=== PATIENT | female | born 1965 | race Asian ===

== ENCOUNTER 2016-09-09 16:56 | Inpatient (IN) | payer OTHER ==
[~2016-09-09] VITALS: Ht 157.5 cm; Wt 36.8 kg
[~2016-09-09 16:56] MED LIST: ACET325T33 PO; ATOR40TA68 PO; DOCU-144 PO; GLIM2TAB PO; HYDR-3498 NGT; HYDR-3720 PO; IBUP400T22 PO; METF1000 PO; METH500T PO
[2016-09-09] MEDS ORDERED: SOD CHLORIDE 0.9% 1,000 ML IV STA (17:15)
[2016-09-09] MEDS ORDERED: HYDROmorphONE 1 MG/ML SYG IV STA ×2 (17:43→18:04)
[2016-09-09 17:51] LABS: ADD UMIC NO; URINE BILIRUBIN (Dip) NEGATIVE (NEGATIVE); URINE BLOOD (Dip) NEGATIVE (NEGATIVE); URINE COLOR LT. YELLOW (YELLOW); URINE GLUCOSE (Dip) NEGATIVE (NEGATIVE); URINE KETONES (Dip) NEGATIVE (NEGATIVE); URINE LEUKOCYTE ESTERASE (Dip) NEGATIVE (NEGATIVE); URINE NITRITE (Dip) NEGATIVE (NEGATIVE); URINE TOTAL PROTEIN (Dip) NEGATIVE (NEGATIVE); URINE UROBILINOGEN (Dip) 0.2 E.U./dL (0.1-1.0)
[2016-09-09 17:53] LABS: HEMATOCRIT 31.8 % (37.0-47.0); HEMOGLOBIN 10.6 g/dl (12.0-16.0); MEAN CORPUSCULAR HEMOGLOBIN 25.8 pg (29.0-33.0); MEAN CORPUSCULAR HGB CONC 33.2 g/dl (32.0-37.0); MEAN CORPUSCULAR VOLUME 77.8 fl (82.0-101.0); MEAN PLATELET VOLUME 5.8 fl (7.4-10.4); PLATELET COUNT 694 10^3/UL (140-440); RED BLOOD COUNT 4.09 10^6/ul (4.20-5.40); RED CELL DISTRIBUTION WIDTH 17.9 % (11.5-14.5); UNCORRECTED WBC 18.1 10^3/ul (4.8-10.8); WHITE BLOOD COUNT 18.1 10^3/ul (4.8-10.8)
[2016-09-09 17:56] LABS: ALBUMIN 3.2 g/dl (3.3-4.9)
[2016-09-09 17:58] LABS: CREATININE 0.49 mg/dl (0.44-1.00)
[2016-09-09 17:59] LABS: ALBUMIN/GLOBULIN RATIO 0.65; BILIRUBIN,INDIRECT 0.2 mg/dl (0-1.1); BILIRUBIN,TOTAL 0.2 mg/dl (0.2-1.3); CALCIUM 9.3 mg/dl (8.4-10.2); TOTAL PROTEIN 8.1 g/dl (6.1-8.1)
[2016-09-09 18:10] LABS: CONDITION 1
--- NOTE | 2016-09-09 18:14 | ERA ---
ER Documentation Chief Complaint Date/Time DATE: 09/09/16 TIME: 18:09 Chief Complaint urine retention distended bladder since 7 am this morning HPI 51-year-old woman brought in by EMS from home for suprapubic abdominal pain. She has metastatic colon cancer and had a colon stent placed months ago, which family members were at the bedside state came out with a bowel movement 3 days ago. Despite opioid analgesic use she has continued abdominal pain and recent suprapubic distention she has had no fevers or chills, no vomiting despite p.o. intake, no blood per rectum or melena, no chest pain or shortness of breath. ROS All systems reviewed and are negative except as per history of present illness. Medications Home Meds Active Scripts Hydrocodone Bit-Acetaminophen* ([place]*) 7.5-325 Tablet, 1 TAB PO Q4H Y for PAIN , #30 TAB Prov:TEJINDER DAVIDSTOLOS A. DO 12/06/15 Ibuprofen* (Motrin*) 400 Mg Tab, 400 MG PO Q6H Y for PAIN, #30 TAB Prov:TEJINDER DAVIDSTOLOS A. DO 12/06/15 Methocarbamol* (Robaxin*) 500 Mg Tab, 500 MG PO Q8, #30 TAB Prov:TEJINDER DAVIDSTOLOS A. DO 12/06/15 Hydrocodone Bit/Acetaminophen (Anexsia 5-325 Mg Tablet) 1 Tab Tab, 1 TAB NGT Q4H Y for Moderate pain for 28 Days, TAB Prov:FER DE OLIVEIRA MD 10/29/15 Docusate Sodium* (Colace*) 100 Mg Cap, 100 MG PO Q12H Y for CONSTIPATION for 28 Days, CAP Prov:FER DE OLIVEIRA MD 10/29/15 Acetaminophen* (Tylenol*) 325 Mg Tab, 650 MG PO Q6H Y for PAIN LEVEL 1-3 OR FEVER for 28 Days, TAB Prov:FER DE OLIVEIRA MD 10/29/15 Reported Medications Metformin Hcl* (Metformin Hcl*) 1,000 Mg Tablet, 1000 MG PO BID 09/25/15 Atorvastatin* (Atorvastatin*) 40 Mg Tablet, 40 MG PO DAILY 09/25/15 Glimepiride* (Glimepiride*) 2 Mg Tablet, 2 MG PO BID 09/25/15 Allergies Allergies: Coded Allergies: No Known Allergy (Verified , 06/13/08) PMhx/Soc Hypertension, colon cancer History of Surgery: Yes (colon stent placement/removal) Anesthesia Reaction: No Hx Neurological Disorder: No Hx Respiratory Disorders: No Hx Cardiac Disorders: No Hx Psychiatric Problems: No Hx Miscellaneous Medical Probl: Yes (COLON CANCER, DM) Hx Alcohol Use: No Hx Substance Use: No Hx Tobacco Use: No Smoking Status: Never smoker FmHx Family History: No diabetes Physical Exam Vitals Vital Signs Date Time Temp Pulse Resp B/P Pulse Ox O2 Delivery O2 Flow Rate FiO2 09/09/16 17:01 97.8 119 18 146/109 99 Physical Exam GENERAL: Well-developed, dehydrated, emaciated, in pain HEENT: Dry mucous membranes, pink conjunctiva, no cervical spine tenderness or step-off deformities, no goiter, no jaundice or icterus, extraocular movements intact without pain. No submandibular induration, and no pharyngeal erythema NEURO: Alert and oriented 3, cranial nerves II through XII intact bilaterally, pupils equal round reactive to light, no focal deficits or facial asymmetry, sensation intact distally Strength 5/5 in upper and lower extremities bilaterally CARDIAC: Tachycardic and regular, no murmurs rubs or gallops LUNGS: Clear bilaterally no wheezing crackles or stridor ABDOMEN: positive suprapubic distention no psoas sign no obturator sign. Normoactive bowel sounds SKIN: Warm and dry to touch, no abrasions, contusions, or hematomas, no lacerations, no ecchymosis, no target lesions, and without ulcers EXTREMITIES: No clubbing cyanosis or edema, calves are bilaterally symmetrical, no Homans sign, no popliteal cord sign. Distal pulses equal and bilateral PSYCH: Normal affect without agitation or irritability Result Diagram: 09/09/16 1730 Results 24 hrs Laboratory Tests Test 09/09/16 17:20 09/09/16 17:30 Urine Bilirubin NEGATIVE Urine Clarity CLEAR Urine Color LT. YELLOW Urine Glucose NEGATIVE% Urine Hemoglobin NEGATIVE Urine Ketones NEGATIVE Urine Leukocyte Esterase NEGATIVE Urine Nitrite NEGATIVE Urine Specific Allison 1.010 Urine Total Protein NEGATIVE Urine Urobilinogen 0.2 E.U./dL Urine pH 7.0 Alanine Aminotransferase (ALT/SGPT) 14IU/L Albumin 3.2g/dl Albumin/Globulin Ratio 0.65 Alkaline Phosphatase 166IU/L Anion Gap 15 Aspartate Amino Transf (AST/SGOT) 66IU/L Blood Urea Nitrogen 17mg/dl Calcium Level 9.3mg/dl Carbon Dioxide Level 29mmol/L Chloride Level 96mmol/L Creatinine 0.49mg/dl Direct Bilirubin 0.00mg/dl Globulin 4.90g/dl Glucose Level 165mg/dl Indirect Bilirubin 0.2mg/dl Lipase 20U/L Potassium Level 4.0mmol/L Sodium Level 136mmol/L Total Bilirubin 0.2mg/dl Total Protein 8.1g/dl Current Medications Medications (Trade) Dose Ordered Sig/Quin Route PRN Reason Start Time Stop Time Status Last Admin Dose Admin Sodium Chloride (NS) 1,000 ml @ 2,000 mls/hr Q30M STAT IV 09/09/16 17:15 09/09/16 17:44 DC 09/09/16 17:34 Hydromorphone HCl (Dilaudid) 1 mg ONCE STAT IV 09/09/16 17:43 09/09/16 17:44 DC 09/09/16 17:48 Hydromorphone HCl (Dilaudid) 1 mg ONCE STAT IV 09/09/16 18:04 09/09/16 18:06 DC Procedures/MDM IV line was established patient was placed on surveillance monitor rhythm strip revealed a sinus tachycardia at 110 bpm with upright P and T waves. Patient was afebrile. For suprapubic distention and urinary retention a Davis catheter was placed with about 2 L of urine output. Urine cultures have been ordered results are pending I will follow-up. CBC revealed leukocytosis, electrolytes were unremarkable, liver function tests were normal, urine analysis was clean. For dehydration I administered 2 L normal saline intravenously for pain she received hydromorphone 1 mg IV later followed by another dose for continued pain. Departure Diagnosis: Primary Impression: Metastatic colon cancer in female Additional Impressions: Intractable pain Urinary retention Hypertension Qualified Code: I10 - Essential hypertension Condition: CASSANDRA Prieto MD Sep 09, 2016 18:14
[2016-09-09] MEDS ORDERED: HYDR-3498 PO (18:18)
[2016-09-09] MEDS ORDERED: DOCU100C26 PO (18:20)
[2016-09-09] MEDS ORDERED: MORP-58 PO (18:20)
[2016-09-09] MEDS ORDERED: HYDR4TAB PO (18:21)
[2016-09-09] MEDS ORDERED: GABA100C14 PO (18:22)
[2016-09-09 18:39] LABS: BASOPHIL # 0.2 10^3/ul (0.0-0.1); LYMPHOCYTES # 0.5 10^3/ul (0.8-2.9); MONOCYTE # 0.5 10^3/ul (0.3-0.9); NEUTROPHIL # 16.1 10^3/ul (1.6-7.5)
[2016-09-09 18:41] LABS: PLATELET ESTIMATE PLT APPEAR INCREASED
[2016-09-09] MEDS ORDERED: [UNRECOGNIZED DRUG - OTHER] SL (18:53)
[2016-09-09 21:00] VITALS: PULSE 109; TEMP 98
[2016-09-09] MEDS: morphine 4 MG/ML VIAL IV PRN (21:11)
[2016-09-09] MEDS ORDERED: HYDR-902 PO (23:16)
[2016-09-09 23:27] VITALS: BP 143/67; RESP 16
[2016-09-09] MEDS ORDERED: DEXTROSE 50% 50 ML SYRINGE IV PRN ×2 (23:45)
[2016-09-09] MEDS ORDERED: GLUCOSE GEL 15 GRAM TUBE PO PRN ×2 (23:45)
[2016-09-09] MEDS ORDERED: GLUCOSE GEL 15 GRAM TUBE BUCCAL PRN (23:45)
[2016-09-09] MEDS ORDERED: GLUCAGON 1 MG INJ IM PRN (23:45)
[2016-09-10] MEDS ORDERED: MORPHINE SL PRN
[2016-09-10] MEDS: ACETAMINOPHEN 325 MG TAB PO PRN (00:24)
[2016-09-10] MEDS: morphine 4 MG/ML VIAL IV PRN ×4 (01:28→21:46)
[2016-09-10] MEDS: ACCUCHECK XX SCH (02:00)
[2016-09-10 05:43] LABS: EOSINOPHILS # 0.1 10^3/ul (0.0-0.5); EOSINOPHILS % 0.9 % (0.0-7.0); HEMATOCRIT 24.9 % (37.0-47.0); HEMOGLOBIN 8.3 g/dl (12.0-16.0); LYMPHOCYTES # 1.3 10^3/ul (0.8-2.9); LYMPHOCYTES % 13.1 % (15.0-51.0); MEAN CORPUSCULAR HGB CONC 33.2 g/dl (32.0-37.0); MEAN CORPUSCULAR VOLUME 78.1 fl (82.0-101.0); MEAN PLATELET VOLUME 5.9 fl (7.4-10.4); MONOCYTE # 0.4 10^3/ul (0.3-0.9); MONOCYTES % 4.6 % (0.0-11.0); NEUTROPHIL # 7.9 10^3/ul (1.6-7.5); NEUTROPHILS % 81.4 % (39.0-77.0); PLATELET COUNT 607 10^3/UL (140-440); RED BLOOD COUNT 3.18 10^6/ul (4.20-5.40); RED CELL DISTRIBUTION WIDTH 18.4 % (11.5-14.5); UNCORRECTED WBC 9.7 10^3/ul (4.8-10.8); WHITE BLOOD COUNT 9.7 10^3/ul (4.8-10.8)
[2016-09-10 05:46] LABS: CONDITION 1; LH ANALYZER COMMENTS 1
[2016-09-10] MEDS: PANTOPRAZOLE 40 MG INJ IV SCH (06:27)
[2016-09-10 06:31] LABS: ALBUMIN 2.4 g/dl (3.3-4.9)
[2016-09-10 06:32] LABS: POTASSIUM 3.2 mmol/L (3.5-5.1)
[2016-09-10 06:34] LABS: BILIRUBIN,INDIRECT 0.1 mg/dl (0-1.1); BILIRUBIN,TOTAL 0.1 mg/dl (0.2-1.3); CREATININE 0.43 mg/dl (0.44-1.00)
[2016-09-10 06:35] LABS: ALBUMIN/GLOBULIN RATIO 0.63; CALCIUM 8.6 mg/dl (8.4-10.2); TOTAL PROTEIN 6.2 g/dl (6.1-8.1)
[2016-09-10] MEDS: INSULIN ASPART [NOVOLOG] 3 ML PEN SC SCH ×4 (07:57→21:00)
[2016-09-10 08:05] VITALS: BP 134/74; RESP 20
[2016-09-10] MEDS ORDERED: POTASSIUM CHLORIDE 250 ML IVPB ONE (08:30)
[2016-09-10] MEDS ORDERED: GLIMEPIRIDE 2 MG TAB PO SCH (09:00)
[2016-09-10] MEDS: MINERAL OIL 30ML CUP PO SCH (09:37)
[2016-09-10] MEDS: DOCUSATE SODIUM 100 MG CAP PO SCH ×2 (09:37→21:50)
[2016-09-10] MEDS: morphine (ER) 30 MG TAB PO SCH ×2 (09:38→23:09)
--- NOTE | 2016-09-10 09:50 | QN ---
Documentation Comment [id number] FER DE OLIVEIRA MD Sep 10, 2016 09:50
--- NOTE | 2016-09-10 11:07 | RADRPT ---
PROCEDURE: US Retroperitoneum. CLINICAL INDICATION: Abnormal labs. TECHNIQUE: Sonographic evaluation of the kidneys and bladder was performed using a curved array tr ansducer. COMPARISON: None. FINDINGS: Right kidney Size: 9.9 cm. Echogencitiy: Normal. Parenchymal thickness: Normal. Pelvicalyceal dilation: None. Focal findings: None. Left kidney Size: 10.0 cm. Echogencitiy: Normal. Parenchymal thickness: Normal. Pelvicalyceal dilation: None. Focal findings: None. Bladder A Davis catheter is present in the decompressed urinary bladder. Other findings None. IMPRESSION: 1. Unremarkable sonographic evaluation of the kidneys. RPTAT: EE .Van Richardson MD, MD Date Time Electronically viewed and signed by .Van Richardson MD, on 09/10/2016 11:11 .C/
[2016-09-10] MEDS ORDERED: POLYETHYLENE GLYCOL 17 GM PACKET PO PRN (12:00)
[2016-09-10] MEDS ORDERED: NA PHOSPHATE/BIPHOS 133 ML ENEMA PR PRN (12:00)
[2016-09-10 19:45] VITALS: BP 122/60; RESP 16
[2016-09-10] MEDS ORDERED: ATORVASTATIN 40 MG TAB PO SCH (21:00)
[2016-09-10] MEDS ORDERED: GABAPENTIN 100 MG CAP PO SCH (21:00)
[2016-09-10] MEDS: LUBIPROSTONE 24 MCG CAP PO SCH (21:50)
[2016-09-11] MEDS: ACCUCHECK XX SCH (01:19)
[2016-09-11] MEDS: morphine 4 MG/ML VIAL IV PRN ×2 (01:44→18:28)
[2016-09-11] MEDS ORDERED: ONDANSETRON 4 MG INJ IV PRN (02:30)
[2016-09-11] MEDS: PANTOPRAZOLE 40 MG INJ IV SCH (06:04)
[2016-09-11 06:05] VITALS: Ht 157.5 cm; Wt 36.8 kg
[2016-09-11 06:38] LABS: POTASSIUM 3.4 mmol/L (3.5-5.1)
[2016-09-11 06:41] LABS: CALCIUM 8.5 mg/dl (8.4-10.2); CREATININE 0.39 mg/dl (0.44-1.00)
[2016-09-11 07:50] VITALS: BP 113/64; RESP 16
[2016-09-11] MEDS: INSULIN ASPART [NOVOLOG] 3 ML PEN SC SCH ×3 (08:15→17:37)
[2016-09-11] MEDS: morphine (ER) 30 MG TAB PO SCH (08:29)
[2016-09-11] MEDS: LUBIPROSTONE 24 MCG CAP PO SCH (08:29)
[2016-09-11] MEDS: DOCUSATE SODIUM 100 MG CAP PO SCH (08:29)
[2016-09-11] MEDS: MINERAL OIL 30ML CUP PO SCH (08:29)
[2016-09-11] MEDS ORDERED: INFLUENZA VIRUS VACCINE 0.5 ML (DISPENSING) IM* ONE (09:00)
--- NOTE | 2016-09-11 12:41 | PDOCDIS ---
Discharge Instructions CONDITION Patient Condition: Stable HOME CARE INSTRUCTIONS: Special Diet: 1800 ada FOLLOW UP/APPOINTMENTS Appointments f/u own pcp 1 wk and hospice f/u out pt FER DE OLIVEIRA MD Sep 11, 2016 12:41
[2016-09-11] MEDS ORDERED: POLY17PO6 PO (12:42)
[2016-09-11] MEDS ORDERED: LUBI24CA7 PO (12:42)
--- NOTE | 2016-09-11 12:49 | PN ---
Date/Time of Note Date/Time of Note DATE: 09/11/16 TIME: 12:47 Assessment/Plan VTE Prophylaxis VTE Prophylaxis Intervention: other Lines/Catheters IV Catheter Type (from Nrs): Saline Lock Urinary Cath still in place: Yes Reason Cath still needed: other (indicate) Assessment/Plan Chief Complaint/Hosp Course meatastastic cancer on hospice hypokalemia anemia plan [facility] home Problems: Subjective 24 Hr Interval Summary Cardiovascular: no complaints Gastrointestinal: no complaints Genitourinary: no complaints Exam/Review of Systems Vital Signs Vitals Vital Signs Date Time Temp Pulse Resp B/P Pulse Ox O2 Delivery O2 Flow Rate FiO2 09/11/16 07:50 98.4 103 16 113/64 98 09/09/16 21:00 Room Air Intake and Output 09/10/16 09/10/16 09/11/16 15:00 23:00 07:00 Intake Total 850 ml 200 ml Output Total 900 ml 200 ml Balance -50 ml 0 ml Exam Respiratory: clear to auscultation Cardiovascular: regular rate and rhythm Gastrointestinal: soft Musculoskeletal: nl extremities to inspection Extremities: normal pulses Results Result Diagram: 09/10/16 0505 09/11/16 0450 Results 24 hrs Laboratory Tests Test 09/10/16 17:10 09/10/16 21:49 09/11/16 04:50 09/11/16 07:41 Bedside Glucose 109 119 90 Anion Gap 8 Blood Urea Nitrogen 8 Calcium Level 8.5 Carbon Dioxide Level 27 Chloride Level 103 Creatinine 0.39 L Glucose Level 106 Potassium Level 3.4 L Sodium Level 135 Test 09/11/16 12:05 Bedside Glucose 130 Medications Medications Current Medications Atorvastatin Calcium (Lipitor) 40 mg DAILY@21 PO Last administered on 21:50; Admin Dose 40 MG; Start 09/10/16 at 21:00 Docusate Sodium (Colace) 100 mg BID PO Last administered on 09/11/16 08:29; Admin Dose 100 MG; Start 09/10/16 at 09:00 Gabapentin (Neurontin) 100 mg QHS PO Last administered on 09/10/16 21:50; Admin Dose 100 MG; Start 09/10/16 at 21:00 Morphine Sulfate (Ms Contin (Er)) 30 mg Q12 PO Last administered on 09/11/16 08:29; Admin Dose 30 MG; Start 09/10/16 at 09:00 Pantoprazole (Protonix Iv) 40 mg DAILY@06 IV Last administered on 09/11/16 06: 04; Admin Dose 40 MG; Start 09/10/16 at 06:00 Diagnostic Test (Pha) (Accucheck) 1 ea 02 XX ; Start 09/10/16 at 02:00 Mineral Oil (Mineral Oil) 30 ml DAILY PO Last administered on 09/11/16 08:29; Admin Dose 30 ML; Start 09/10/16 at 09:00 Acetaminophen (Tylenol Tab) 650 mg Q6H PRN PO PAIN AND OR ELEVATED TEMP Last administered on 09/10/16 00:24; Admin Dose 650 MG; Start 09/10/16 at 00:00 Miscellaneous Information 1 ea NOTE XX ; Start 09/09/16 at 23:45 Glucose (Glutose) 15 gm Q15M PRN PO DECREASED GLUCOSE; Start 09/09/16 at 23:45 Glucose (Glutose) 22.5 gm Q15M PRN PO DECREASED GLUCOSE; Start 09/09/16 at 23: 45 Dextrose (D50w Syringe) 25 ml Q15M PRN IV DECREASED GLUCOSE; Start 09/09/16 at 23:45 Dextrose (D50w Syringe) 50 ml Q15M PRN IV DECREASED GLUCOSE; Start 09/09/16 at 23:45 Glucagon (Glucagen) 1 mg Q15M PRN IM DECREASED GLUCOSE; Start 09/09/16 at 23:45 Glucose (Glutose) 15 gm Q15M PRN BUCCAL DECREASED GLUCOSE; Start 09/09/16 at 23 :45 Polyethylene Glycol (Miralax) 17 gm DAILY PRN PO CONSTIPATION; Start 09/10/16 at 12:00 Morphine Sulfate (morphine) 4 mg Q4H PRN IV PAIN Last administered on 01:44; Admin Dose 4 MG; Start 09/10/16 at 12:30 Lubiprostone (Amitiza) 24 mcg BID PO Last administered on 09/11/16 08:29; Admin Dose 24 MCG; Start 09/10/16 at 21:00 Ondansetron HCl 4 mg 4 mg Q4H PRN IV NAUSEA AND/OR VOMITING; Start 09/11/16 at 02:30 Potassium Chloride (KCl 40 MEQ/250 ML NS) 250 ml @ 62.5 mls/hr ONCE ONCE IVPB ; Start 09/11/16 at 13:00; Stop 09/11/16 at 16:59 FER DE OLIVEIRA MD Sep 11, 2016 12:49
[2016-09-11] MEDS ORDERED: POTASSIUM CHLORIDE 250 ML IVPB ONE (13:00)
[2016-09-11 19:41] VITALS: BP 122/66; RESP 20
[2016-09-11] MEDS: ACETAMINOPHEN 325 MG TAB PO PRN (20:15)
--- NOTE | 2016-09-12 07:17 | HP ---
DATE OF ADMISSION: 09/09/2016 HISTORY OF PRESENT ILLNESS: Kasandra Catherine is a young female who has a history of metastatic colon cancer, history of anemia, history of colonoscopy, chronic pain, history of status post stent was successfu lly deployed in the colon per Dr. Mccullough in the past. The patient was on hospice. The patient's fa yandel ____ from hospice, presented to this hospital with abdominal pain. Has urinary retention. Fol ey catheter was inserted and patient did not want to go home from the Emergency Room, wanted to have pain managed. Patient's blood pressure 134/74, hematocrit 24.9, potassium 3.2, being replaced. Th e patient had a Davis catheter placed in the ER. Patient is being monitored for further management. PAST MEDICAL HISTORY: Positive for metastatic colon cancer, history of colonoscopy, history of sten t placement in the colon. The patient is status post hospice enrollment. Elevated CEA. ALLERGY HISTORY: NEGATIVE. FAMILY HISTORY: Noncontributory. SOCIAL HISTORY: Negative. MEDICATION HISTORY: The patient is on: 1. Lipitor. 2. Colace. 3. Gabapentin. 4. Amaryl. 5. Hydrocodone. 6. ____. 7. Morphine. REVIEW OF SYSTEMS: HEENT: Unremarkable. RESPIRATORY: ____ ABDOMEN: Abdominal pain is better. EXTREMITIES: Unremarkable. GENITOURINARY: Unremarkable. MUSCULOSKELETAL: Unremarkable. PHYSICAL EXAMINATION: GENERAL: Pale-looking female, awake. VITAL SIGNS: Stable. Pulse ____ HEAD: Atraumatic, normocephalic. Pupils equal, reactive to light. NECK: Supple. No JVD. LUNGS: Clear. CARDIOVASCULAR: S1, S2 are normal. ABDOMEN: Soft. Mild tenderness on deep palpation, otherwise unremarkable. EXTREMITIES: No cyanosis, clubbing, edema. CENTRAL NERVOUS SYSTEM: The patient is awake, alert, no focal deficit. LABORATORY DATA: As mentioned above. IMPRESSION: 1. Patient has urinary retention. 2. Leukocytosis. 3. Metastatic colon cancer. 4. Hypokalemia. 5. Electrolyte imbalance. 6. History of stent placement. PLAN: To continue current treatment. The patient will not be placed on antibiotics. Her white cou nt is resolving. Davis catheter will be kept and patient output will be observed. Home medications will be reviewed and continued. Orders were done. Dictated By: FER DIEGO/DANIELLA Conf#: [id number] DID#: [id number]
[2016-09-13 16:35] LABS: LH ANALYZER COMMENTS 1
== END 2016-09-11 20:45 | disposition home or self-care (01) | DRG 376 ==
LOC: E/R 16:56 → MS2 18:47
PROVIDERS: ADMIT Internal Medicine Nephrology; ATTEND Internal Medicine Nephrology
PROC: 0T9B70Z Drainage of Bladder with Drainage Device, Via Natural or Artificial Opening (ICD-10-PCS; principal; 2016-09-09)
DX: C78.5 Secondary malignant neoplasm of large intestine and rectum (principal); E87.8 Other disorders of electrolyte and fluid balance, not elsewhere classified; I10 Essential (primary) hypertension; R33.9 Retention of urine, unspecified; E87.6 Hypokalemia; D64.9 Anemia, unspecified
CPT/HCPCS: 36415; 76775; 80048; 80053; 81003; 82962; 83690; 85025; 87086; 90686; 96374; 96375; C9113; J1170; J1815; J2270; J3480; J7030